=== PATIENT | male | born 2005 | race Two or more races ===

== ENCOUNTER 2024-02-29 15:02 | Inpatient (IN) | payer MEDICAID, OTHER ==
[~2024-02-29] VITALS: Ht 175.3 cm; Wt 64.0 kg
--- NOTE | 2024-02-29 18:07 | ED.PDOC ---
Musculoskeletal HPI Comments 18 year old male presents to the ED with chief complaint of left humerus fracture and surgery pre-op. Patient reports that he had fractured his left humerus on 01/21/24 after a rock climbing fall, having a cast placed by ortho for a month. Patient relays that the cast did not heal his fracture and he was referred to the ER by his orthopedist Dr. Orozco to be admitted to the hospital for surgery tomorrow. Patient states his pain is mild and does not need any pain medication at this time. Patient denies any other symptoms at this time. Chief Complaint: Upper Extremity Time Seen by MD: 18:04 Primary Care Provider: VALENCIA Rivas Notes: Nurses Notes, Medications, Allergies Allergies: Coded Allergies: NO KNOWN ALLERGIES (Unverified , 02/29/24) Information Source: Patient, Relative (Mother) Mode of Arrival: Ambulatory Location: Left Extremity Location: Arm Timing: Weeks Prehospital treatment: None Severity: Moderate Able to Move Extremity: No Bear Weight: Fully Pain: Mild Mechanism: Spontaneous Circumstances: Fall Onset of Symptoms: After Trauma Symptoms: Pain DVT Risk Factors: NONE Last Tetanus: UTD Associated signs and symptoms: Other (Left humerus fracture) Past Medical History PAST MEDICAL HISTORY: Denies Surgical History: Denies all surgeries Family History Family History: Reviewed,noncontributory to illness Social History Smoker: Non-Smoker Alcohol: Denies ETOH Use Drugs: Denies Drug Use Lives In: Home Constitutional: denies: chills, diaphoresis, fatigue, fever, malaise, sweats, weakness, others EENTM: denies: blurred vision, double vision, ear bleeding, ear discharge, ear drainage, ear pain, ear ringing, eye pain, eye redness, hearing loss, mouth pain, mouth swelling, nasal discharge, nose bleeding, nose congestion, nose pain, photophobia, tearing, throat pain, throat swelling, voice changes, others Respiratory: denies: cough, hemoptysis, orthopnea, SOB at rest, shortness of breath, SOB with excertion, stridor, wheezing, others Cardiovascular: denies: chest pain, dizzy spells, diaphoresis, Dyspnea on exertion, edema, irregular heart beat, left arm pain, lightheadedness, palpitations, PND, syncope, others Gastrointestinal: denies: abdomen distended, abdominal pain, blood streaked bowels, constipated, diarrhea, dysphagia, difficulty swallowing, hematemesis, melena, nausea, poor appetite, poor fluid intake, rectal bleeding, rectal pain, vomiting, others Genitourinary: denies: burning, dysuria, flank pain, frequency, hematuria, incontinence, penile discharge, penile sore, pain, testicle pain, testicle swelling, urgency, others Neurological: denies: dizziness, fainting, headache, left sided numbness, left sided weakness, numbness, paresthesia, pre-existing deficit, right sided numbness, right sided weakness, seizure, speech problems, tingling, tremors, weakness, others Musculoskeletal: reports: others (Left humerus fracture); denies: back pain, gout, joint pain, joint swelling, muscle pain, muscle stiffness, neck pain Integumetry: denies: bruises, change in color, change in hair/nails, dryness, laceration, lesions, lumps, rash, wounds, others Allergic/Immunocompromised: denies: Difficulty Healing, Frequent Infections, Hives, Itching, others Hematologic/Lymphatic: denies: anemia, blood clots, easy bleeding, easy bruising, swollen glands, others Endocrine: denies: excessive hunger, excessive sweating, excessive thirst, excessive urination, flushing, intolerance to cold, intolerance to heat, unexplained weight gain, unexplained weight loss, others Psychiatric: denies: anxiety, bipolar disorder, depression, hopeless, panic disorder, schizophrenia, sleepless, suicidal, others All Other Systems: Reviewed and Negative Physical Exam General Appearance: No Apparent Distress HEENT: PERRL/EOMI Neck: Full Range of Motion, Normal Inspection Respiratory: Lungs Clear, No Accessory Muscle Use, No Respiratory Distress, Normal Breath Sounds Cardiovascular: No Edema, No JVD, Regular Rate/Rhythm Breast Exam: Deferred Gastrointestinal: Non Tender, Soft Genitalia: Deferred Pelvic: Deferred Rectal: Deferred Extremities: Other (Left upper extremity sling in place with mid upper arm soft tissue tenderness. Left upper extremity neurovascularly intact.) Neurologic: Alert (Oriented x4), Normal Affect, Normal Mood, Other (Moves all extremities. No gross focal deficit.) Cerebellar Function: NOT DONE Reflexes: NOT DONE Skin: Dry, Normal Color, Warm Lymphatic: NOT DONE Was a procedure done? Was a procedure done?: No Differential Diagnosis EXT Differential Diagnosis: Fracture X-Ray, Labs, Meds, VS Vital Signs Date Time Temp Pulse Resp B/P (MAP) Pulse Ox O2 Delivery O2 Flow Rate FiO2 02/29/24 21:28 98.6 75 12 135/60 (85) 100 98.6 02/29/24 16:57 98.2 81 18 124/75 (91) 98 98.2 02/29/24 16:57 81 18 98 Room Air 02/29/24 15:26 98.0 89 16 129/67 (87) 97 Lab Test 02/29/24 17:54 Range/Units White Blood Count 7.1 4.4-10.8 10^3/uL Red Blood Count 5.22 4.5-5.90 10^6/uL Hemoglobin 15.8 13.5-17.5 g/dL Hematocrit 45.6 41.0-53.0 % Mean Corpuscular Volume 87.3 80.0-100.0 fL Mean Corpuscular Hemoglobin 30.2 28.0-32.0 pg Mean Corpuscular Hemoglobin Concent 34.6 32.0-36.0 g/dL Red Cell Distribution Width 13.1 11.8-14.3 % Platelet Count 252 140-450 10^3/uL Mean Platelet Volume 8.4 6.9-10.8 fL Neutrophils (%) (Auto) 67.4 37.0-80.0 % Lymphocytes (%) (Auto) 21.7 10.0-50.0 % Monocytes (%) (Auto) 8.0 0.0-12.0 % Eosinophils (%) (Auto) 1.6 0.0-7.0 % Basophils (%) (Auto) 1.3 0.0-2.0 % Neutrophils # (Auto) 4.8 1.6-8.6 10 ^3/uL Lymphocytes # (Auto) 1.5 0.4-5.4 10 ^3/uL Monocytes # (Auto) 0.6 0-1.3 10 ^3/uL Eosinophils # (Auto) 0.1 0-0.8 10 ^3/uL Basophils # (Auto) 0.1 0-0.2 10 ^3/uL Nucleated Red Blood Cells 0.2 % Prothrombin Time 11.6 9.3-11.8 sec Prothrombin Time INR 1.10 0.9-1.15 Activated Partial Thromboplast Time 27.8 24.5-34.5 SEC Sodium Level 139 136-145 mmol/L Potassium Level 4.2 3.5-5.1 mmol/L Chloride Level 103 98-107 mmol/L Carbon Dioxide Level 29 20-31 mmol/L Anion Gap 7 5-15 Blood Urea Nitrogen 13 9-23 mg/dL Creatinine 1.01 0.700-1.30 mg/dL Glomerular Filtration Rate Calc 110 >90 mL/min BUN/Creatinine Ratio 12.9 10.0-20.0 Serum Glucose 100 74-106 mg/dL Hemoglobin A1c 4.9 <5.7 % A1C Calcium Level 10.1 8.7-10.4 mg/dL Triglycerides Level 89 < 150 mg/dL Cholesterol Level 124 < 200 mg/dL LDL Cholesterol 75 < 100 mg/dL HDL Cholesterol 46 40-59 mg/dL Lt Humerus XR:Findings/Impression: 2 views of the left humerus. Markedly displaced transverse fracture of the mid humeral diaphysis. There is no evidence of dislocation, blastic, or lytic lesions. No radiopaque foreign bodies. No superficial soft tissue abnormalities. Chest XR: FINDINGS: Lines and Tubes: None Lungs: No focal consolidation. Pleura: No effusion. No pneumothorax. Cardiomediastinal contours: Unremarkable Bones: No acute osseous abnormality. IMPRESSION: 1. No acute cardiopulmonary disease. X-Ray, Labs, Meds, VS Comment 18-year-old male with no significant past medical history referred by Dr. Khanna for hospital admission for left upper extremity surgery tomorrow to repair a mid shaft humerus fracture with nonunion Vitals unremarkable Exam remarkable for left upper extremity mid humeral area soft tissue tenderness Rhythm strip independently interpreted by me: Sinus rhythm, rate 89, no ectopy. Chest x-ray unremarkable Left humerus x-ray Findings/Impression: 2 views of the left humerus. Markedly displaced transverse fracture of the mid humeral diaphysis. There is no evidence of dislocation, blastic, or lytic lesions. No radiopaque foreign bodies. No superficial soft tissue abnormalities. CBC, BMP and coagulation panel unremarkable for any abnormality of acute significance Patient resting comfortably with stable vitals on re-evaluation. He declined pain medication in the ED. He was placed NPO after midnight. Plan is to admit the patient for medical clearance for surgery in the morning. Images Reviewed?: Images reviewed and evaluated by me Time of 1ST Reevaluation: 19:04 Reevaluation 1ST: Unchanged Patient Education/Counseling: Diagnosis, Treatment Family Education/Counseling: Diagnosis, Treatment Departure 1 Departure Time of Disposition: 20:45 Impression: Primary Impression: Fracture of left humerus with nonunion Qualified Codes: S42.302K - Unspecified fracture of shaft of humerus, left arm, subsequent encounter for fracture with nonunion Disposition: 09 ADMITTED INPATIENT Admit to: Med Surg Condition: Stable Critical Care Note Critical Care Time?: No Stability Stability form required: No Heart Score Heart Score: Heart Score Response (Comments) Value History N/A 0 EKG N/A 0 Age N/A 0 Risk Factors N/A 0 Troponin N/A 0 Total 0 I personally scribed for NIK MART MD ([email or web address]) on 02/29/24 at 18:07. Electronically submitted by Kb Jordan ([email or web address]). I personally scribed for NIK MART MD ([email or web address]) on 02/29/24 at 18:23. Electronically submitted by Kb Jordan ([email or web address]). NIK MART MD Feb 29, 2024 18:07
--- NOTE | 2024-02-29 18:12 | DVH ---
EXAM: XY L HUMERUS XRAY CLINICAL HISTORY: fx COMPARISON: None TECHNIQUE: XY L HUMERUS XRAY Findings/Impression: 2 views of the left humerus. Markedly displaced transverse fracture of the mid humeral diaphysis. There is no evidence of dislocation, blastic, or lytic lesions. No radiopaque foreign bodies. No superficial soft tissue abnormalities.
--- NOTE | 2024-02-29 18:12 | DVH ---
CHEST RADIOGRAPH Indication: pre-op Technique: Single frontal view of the chest was obtained Comparison: None FINDINGS: Lines and Tubes: None Lungs: No focal consolidation. Pleura: No effusion. No pneumothorax. Cardiomediastinal contours: Unremarkable Bones: No acute osseous abnormality. IMPRESSION: 1. No acute cardiopulmonary disease. HS:Y
[2024-02-29 18:20] LABS: Basophils # (auto) 0.1 10 ^3/uL (0-0.2); Basophils % (auto) 1.3 % (0.0-2.0); Eosinophils # (auto) 0.1 10 ^3/uL (0-0.8); Eosinophils % (auto) 1.6 % (0.0-7.0); Hematocrit 45.6 % (41.0-53.0); Hemoglobin 15.8 g/dL (13.5-17.5); Lymphocytes # (auto) 1.5 10 ^3/uL (0.4-5.4); Lymphocytes % (auto) 21.7 % (10.0-50.0); Mean Corpuscular Hemoglobin 30.2 pg (28.0-32.0); Mean Corpuscular Hgb Conc. 34.6 g/dL (32.0-36.0); Mean Corpuscular Volume 87.3 fL (80.0-100.0); Monocytes # (auto) 0.6 10 ^3/uL (0-1.3); Neutrophils # (auto) 4.8 10 ^3/uL (1.6-8.6); Neutrophils % (auto) 67.4 % (37.0-80.0); Nucleated Red Blood Cells % 0.2 %; Platelet Count (auto) 252 10^3/uL (140-450); Red Blood Cells 5.22 10^6/uL (4.5-5.90); Red Cell Distribution Width 13.1 % (11.8-14.3); White Blood Cell 7.1 10^3/uL (4.4-10.8)
[2024-02-29 18:29] LABS: Chloride 103 mmol/L (98-107); Potassium 4.2 mmol/L (3.5-5.1); Sodium 139 mmol/L (136-145)
[2024-02-29 18:30] LABS: Anion Gap 7 (5-15); Calcium 10.1 mg/dL (8.7-10.4); Carbon Dioxide 29 mmol/L (20-31)
[2024-02-29 18:35] LABS: BUN/Creatinine Ratio 12.9 (10.0-20.0); Blood Urea Nitrogen 13 mg/dL (9-23); Glucose 100 mg/dL (74-106); INR 1.1 (0.9-1.15); Partial Thromboplastin Time 27.8 SEC (24.5-34.5); Prothrombin Time 11.6 sec (9.3-11.8)
[2024-02-29] MEDS ORDERED: HYDROcodone-ACET 5/325MG TAB PO PRN (22:30)
--- NOTE | 2024-02-29 22:39 | DVHHPRES ---
History of Present Illness Resident Creating Document: MIRELA CHATMAN History of Present Illness This is a 18-year-old male with no past medical history of relevance who presented to the ED with left humerus fracture. The patient states that the fracture occurred on January 21, 2024 when he felt while clamping 15 ft of height. Patient falling to the ground placing all his weight on the left upper extremity. A left upper extremity cast was placed on January 21, 2024 until February 21, 2024. Cast was removed at that time, patient is scheduled for left humerus surgical repair tomorrow on 03/01/24. The patient will be placed NPO, pain medication as needed. orthopaedic consult was placed as well. Patient will be admitted for surgery. Past Medical History None Past Surgical History: None Family History: None Smoke: No ALCOHOL: none Drugs: None Lives: with Family Domestic Violence: Neg Review of Systems Constitutional: No: Fever, Chills, Sweats, Weakness, Malaise, Other Eyes: No: Pain, Vision change, Conjunctivae inflammation, Eyelid inflammation, Other, Redness ENT: No: Ear pain, Ear discharge, Nose pain, Nose discharge, Nose congestion, Mouth pain, Mouth swelling, Throat pain, Throat swelling, Other Respiratory: No: Cough, Dry, Shortness of breath, SOB with excertion, Wheezing, Hemoptysis, Pleuritic Pain, Sputum, Wheezing, Other Cardiovascular: No: Chest Pain, Palpitations, Orthopnea, Paroxysmal Noc. Dyspnea, Edema, Lt Headedness, Other Gastrointestinal: No: Nausea, Vomiting, Abdominal Pain, Diarrhea, Constipation, Melena, Hematochezia, Other Genitourinary: No Dysuria, No Frequency, No Incontinence, No Hematuria, No Retention, No Other Musculoskeletal: arm pain (Mild left upper extremity pain on active motor mo vement); No: other, neck pain, shoulder pain, back pain, hand pain, leg pain, foot pain Skin: No: Rash, Lesions, Jaundice, Bruising, Other Neurological: No: Weakness, Numbness, Incoordination, Change in speech, C onfusion, Seizures, Other Allergies: Coded Allergies: NO KNOWN ALLERGIES (Unverified , 02/29/24) Exam Vital Signs Vital Signs Date Time Temp Pulse Resp B/P (MAP) Pulse Ox O2 Delivery O2 Flow Rate FiO2 02/29/24 21:28 98.6 75 12 135/60 (85) 100 98.6 02/29/24 16:57 Room Air General Appearance: Alert, Oriented X3, Cooperative, No acute distress HEENT: Atraumatic, PERRLA, EOMI, Mucous membr. moist/pink Respiratory: Clear to auscultation, Normal air movement Cardiovascular: Regular rate, Normal S1, Normal S2, No murmurs Abdominal: Normal bowel sounds, Soft, No tenderness, No hepatospenomegaly, No masses Extremities: No clubbing, No cyanosis, No edema, Normal pulses, No tenderness/swelling Skin: No rashes, No breakdown, No significant lesion Neuro: Normal gait, Normal speech, Strength at 5/5 X4 ext, Normal tone, Sensation intact, Cranial nerves 3-12 NL, Reflexes 2+ Psych/Mental Status: Mental status NL, Mood NL Labs/Xrays Labs Test 02/29/24 17:54 Range/Units White Blood Count 7.1 4.4-10.8 10^3/uL Red Blood Count 5.22 4.5-5.90 10^6/uL Hemoglobin 15.8 13.5-17.5 g/dL Hematocrit 45.6 41.0-53.0 % Mean Corpuscular Volume 87.3 80.0-100.0 fL Mean Corpuscular Hemoglobin 30.2 28.0-32.0 pg Mean Corpuscular Hemoglobin Concent 34.6 32.0-36.0 g/dL Red Cell Distribution Width 13.1 11.8-14.3 % Platelet Count 252 140-450 10^3/uL Mean Platelet Volume 8.4 6.9-10.8 fL Neutrophils (%) (Auto) 67.4 37.0-80.0 % Lymphocytes (%) (Auto) 21.7 10.0-50.0 % Monocytes (%) (Auto) 8.0 0.0-12.0 % Eosinophils (%) (Auto) 1.6 0.0-7.0 % Basophils (%) (Auto) 1.3 0.0-2.0 % Neutrophils # (Auto) 4.8 1.6-8.6 10 ^3/uL Lymphocytes # (Auto) 1.5 0.4-5.4 10 ^3/uL Monocytes # (Auto) 0.6 0-1.3 10 ^3/uL Eosinophils # (Auto) 0.1 0-0.8 10 ^3/uL Basophils # (Auto) 0.1 0-0.2 10 ^3/uL Nucleated Red Blood Cells 0.2 % Prothrombin Time 11.6 9.3-11.8 sec Prothrombin Time INR 1.10 0.9-1.15 Activated Partial Thromboplast Time 27.8 24.5-34.5 SEC Sodium Level 139 136-145 mmol/L Potassium Level 4.2 3.5-5.1 mmol/L Chloride Level 103 98-107 mmol/L Carbon Dioxide Level 29 20-31 mmol/L Anion Gap 7 5-15 Blood Urea Nitrogen 13 9-23 mg/dL Creatinine 1.01 0.700-1.30 mg/dL Glomerular Filtration Rate Calc 110 >90 mL/min BUN/Creatinine Ratio 12.9 10.0-20.0 Serum Glucose 100 74-106 mg/dL Calcium Level 10.1 8.7-10.4 mg/dL Assessment/Plan Assessment/Plan Assessment/Plan Complete closed Left humerus fracture -Left humerus x ray showed Markedly displaced transverse fracture of the mid humeral diaphysis. -Patient was previously on a cast for 6 weeks w/o healing -No pain at this time, Stebbins and acetaminophen PRN -Immobilization of left upper extremity -NPO after midnight -Consulted orthopaedic surgery -Ordered EKG Screen for hyperlipidemia -Ordered lipid panel Screen for DM -Ordered HbA1c Goals of care discussed with the patient and mother at bedside, FULL CODE Plan discussed with Dr. Betancourt Plan discussed with: Patient My Orders Orders - MIRELA CHATMAN RESIDENT Procedure Category Date Status Time Admit ADMIT 02/29/24 Verified 22:17 Code Status CODE 02/29/24 Verified 22:17 Vital Signs [facility] 02/29/24 Verified 22:17 Review Orders With [facility] 02/29/24 Verified Adm. 22:17 Npo (Nothing By DIET 03/01/24 Verified Mouth) Diet Breakfast Acetaminophen Tablet PHA 02/29/24 Verified (Tylenol Tablet) 22:30 Notify Of Changes [facility] 02/29/24 Verified From Base 22:17 Advance Directive [facility] 02/29/24 Verified 22:17 Urinalysis LAB 02/29/24 Verified 22:17 Lipid Panel LAB 02/29/24 Verified 22:17 Patient Condition ORDERS 02/29/24 Verified 22:17 Allergies [facility] 02/29/24 Verified 22:17 Hydrocodone-Acet PHA 02/29/24 Verified 5/325mg Tab (Stebbins 22:30 Drug Screen LAB 02/29/24 Verified 22:17 Ambulate Every 4hours [facility] 02/29/24 Verified 22:17 Date of Service: Feb 29, 2024 Billing Provider: JOHNIE BETANCOURT MD Common Visit Codes: [id number] INP/OBS CARE (HIGH) MIRELA CHATMAN RESIDENT Feb 29, 2024 22:39 JOHNIE BETANCOURT MD Mar 01, 2024 16:51
[2024-02-29 22:43] LABS: Triglycerides 89 mg/dL (< 150)
[2024-02-29 22:44] LABS: LDL Cholesterol 75 mg/dL (< 100)
[2024-02-29 22:45] LABS: HDL Cholesterol 46 mg/dL (40-59)
[2024-02-29 22:46] LABS: Cholesterol 124 mg/dL (< 200)
[2024-03-01 01:34] VITALS: BP 136/85; PULSE 75; RESP 16; TEMP 98.3; O2SAT 99
[2024-03-01 05:00] VITALS: BP 138/86; PULSE 90; RESP 20; TEMP 97.5; O2SAT 98
[2024-03-01 08:00] VITALS: PULSE 80; RESP 18; O2SAT 98
[2024-03-01] MEDS: SUCCINYLCHOLINE CHLORIDE 20 MG/ML 10ML VIAL IV ONE (08:09)
[2024-03-01] MEDS ORDERED: fentaNYL CITRATE 100 MCG/2 ML VL ONE (08:10)
[2024-03-01] MEDS ORDERED: PROPOFOL 10 MG/ML 20 ML IV ONE (08:10)
[2024-03-01 08:37] VITALS: BP 127/76; PULSE 70; RESP 16; TEMP 97.9; O2SAT 96
[2024-03-01] MEDS: ceFAZolin 2 GM/D5W100ml 100 ML IV ONE (08:53)
[2024-03-01 09:04] LABS: Urine Bacteria None Seen /hpf (None Seen)
--- NOTE | 2024-03-01 09:31 | DVHHP2 ---
History Allergies: Coded Allergies: NO KNOWN ALLERGIES (Unverified , 02/29/24) Chief Complaint: Left arm pain, deformity s/p fall rock climbing, 15ft, wearing helmet, hit head, no LOC, no AMS, acute arm pain and deformity Present Illness(Onset/Duration fall rock climbing on 01/21/24, presented to [facility] ER same day, XR showed transverse midshaft humerus fracture, evaluated by Dr Dimas, orthopaedics, placed in splint. XR at 5wks shows no evidence of healing, options expressed, continued conservative care vs ORIF non contributory Past Surgical History none Medications none Physical Exam Skin intact EENT NCAT Chest and Lungs CTA B Heart RRR neg MRG Abdomen NBS ND NT Extremities Left arm, NVI, skin intact, gross motion at mid upper arm, pain with ROM Vital Signs Vital Signs Date Time Temp Pulse Resp B/P (MAP) Pulse Ox O2 Delivery O2 Flow Rate FiO2 03/01/24 08:37 97.9 70 16 127/76 (93) 96 97.9 03/01/24 08:00 Room Air* 0 21 Impressions/Description LEFT humerus , midshaft fracture, transverse, with no evidence of healing Plan Options expressed continued conservatice care vs ORIF given transverse pattern of fracture no evidence of healing at 5 wks I expressed a possibilty of racture not healing options above were expressed and patient opted for surgery with full understanding of risks and benefits ADRIANNA JOHN MD Mar 01, 2024 09:31
[2024-03-01] MEDS: ROPIVACAINE 0.5% (5MG/ML) 20ML AMPULE IJ ONE (09:34)
[2024-03-01 09:45] LABS: Urine Blood Negative /uL (Negative); Urine Clarity Clear (Clear); Urine Color Yellow (Yellow); Urine Mucus FEW (None Seen); Urine Protein, UAD Negative (Negative); Urine Specific Gravity 1.028 (1.001-1.035); Urine Squamous Epithelial Cell FEW /hpf (<5); Urine Urobilinogen Normal (Negative); Urine WBC <1 /hpf (0 - 3); Urine pH 6.5 (5.0-9.0)
[2024-03-01] MEDS ORDERED: ePHEDrine SULFATE 50 MG/ML AMP ONE (09:54)
[2024-03-01] MEDS ORDERED: ONDANSETRON HCL 4 MG/2 ML VIAL ONE (09:54)
[2024-03-01] MEDS ORDERED: DexAMETHasone SOD PHOS 10MG/1ML VIAL INJ ONE (09:54)
[2024-03-01] MEDS ORDERED: MEPERIDINE HCL (25 MG/ML) 1ML VIAL ONE ×2 (09:56→10:29)
[2024-03-01] MEDS: LIDOCAINE W/ EPINEPHRINE 1% 20ML VIAL ONE (10:09)
[2024-03-01 10:16] LABS: Amphetamine Screen, Urine Neg (NEGATIVE); Barbiturate Scree,Urine Neg (NEGATIVE); Benzodiazephine Screen, Urine Neg (NEGATIVE); Cannabinoid Screen, Urine Neg (NEGATIVE); Cocaine Screen, Urine Neg (NEGATIVE); Opiate Scree,Urine Neg (NEGATIVE); Phencyclidine Screen, Urine Neg (NEGATIVE)
[2024-03-01 10:40] VITALS: PULSE 127; RESP 16; O2SAT 98
[2024-03-01] MEDS: HYDROmorphone HCL 2 MG/ML VL/or syr ONE (10:58)
--- NOTE | 2024-03-01 10:59 | DVHOP2 ---
Operative Report - 2 Report Details Date: 03/01/24 Preop Diagnosis: LEFT humeral shaft fracture, midshaft, transverse, displaced Postop Diagnosis: same Surgeon: Yung John MD Dietary Clerk: none Anesthesiologist: Dr Martin Anesthesia: General Drains: none Implant: 6 hole recon plate, 6 cortical screws Consent: The patient was informed of the risks and benefits of the procedure. These include but are not limited to complications of anesthesia, postoperative infection, incomplete relief of symptoms, recurrence of symptoms, damage to blood vessels, nerves and tendons, deep venous thrombosis, pulmonary embolism and possible need for repeat surgery in the future. Complications: none Estimated Blood Loss: 50 cc Fluids: 500 cc crystalloid Findings: Left humerus midshaaft fracture, transverse, bayonette displacement, no callus formation Indications for Surgery: Transvers midshaft humerus fracture, displaced with no evidence of healing at 5 weeks Name of Procedure Performed Open reduction internal fixation of LEFT midshaft humerus fracture Procedure Details Procedure Details: Patient brought to the operating room received Ancef 1 g IV piggyback preoperatively sterile prep and drape left upper extremity and upper extremity placed on arm table time-out performed comprehension left side correct site open reduction internal fixation of left midshaft humerus fracture correct procedure after review of operative consent history and physical my initials on left arm no tourniquet used during the case longitudinal incision made anterior aspect of upper arm sharp dissection through skin down to subcutaneous tissue blunt disse ction down to deep fascia retraction of Monika biceps muscle medially exposing brachialis muscle muscular cutaneous nerve was observed and care taken to not retract against muscular cutaneous nerve lateral antebrachial cutaneous nerve were observed care taken to not retract against this nerve needle point Bovie cautery to four longitudinal division of brachialis mid mid muscle and s ubperiosteal elevation performed on each side of the brachialis muscle exposing humeral shaft humerus shaft seem to be band at displaced proximal fragment posterior with overlap of 2-3 cm fracture site exposed and curettage of ends of the of the each end of the fracture reduction of the fracture manually placement of a six hole recon plate anteriorly fixation with a recon plate with three bicortical screws proximally three bicortical screws distally C-arm fluoro taken to confirm good position of plate and anatomic alignment of fracture irrigation then performed excellent hemostasis noted [id number] closure of brachialis muscle with 2-0 Vicryl subcutaneous closure with 2-0 Vicryl skin jerri fluffs ABD injection of subcutaneous layer 10 cc Marcaine no epi and deep layer meaning just anterior to fracture site also with 10 cc Marcaine no epi no drains specimens complications Specimen: none Condition Stable Disposition Still a Patient YUNG JOHN MD Mar 01, 2024 10:59
[2024-03-01] MEDS ORDERED: ceFAZolin 1GM/50ML 50 ML IV SCH ×2 (11:00→17:00)
[2024-03-01] MEDS: ONDANSETRON HCL 4 MG/2 ML VIAL IV ONE (11:00)
[2024-03-01] MEDS: MEPERIDINE HCL (25 MG/ML) 1ML VIAL IV PRN (11:00)
[2024-03-01] MEDS ORDERED: ACETAMINOPHEN IV 1000 MG/100ML (10MG/ML) IV PRN (11:00)
[2024-03-01] MEDS: HYDROmorphone HCL 2 MG/ML VL/or syr IV PRN (11:00)
--- NOTE | 2024-03-01 11:24 | DVH ---
FLUOROSCOPY TIME: 0.8 seconds TECHNIQUE: Intraoperative radiographs of the left humerus were obtained. COMPARISON: None FINDINGS: Refer to intraoperative report for further evaluation. IMPRESSION: Refer to intraoperative report for further evaluation.
--- NOTE | 2024-03-01 11:34 | DVH ---
FLUOROSCOPY TIME: 0.8 seconds TECHNIQUE: Intraoperative radiographs of the left humerus were obtained. COMPARISON: None FINDINGS: Refer to intraoperative report for further evaluation. IMPRESSION: Refer to intraoperative report for further evaluation.
[2024-03-01] MEDS: D5W/LACTATED RINGERS 1,000 ML IV SCH (12:06)
[2024-03-01 13:00] VITALS: BP 129/59; PULSE 100; RESP 19; TEMP 97.5; O2SAT 92
[2024-03-01] MEDS: ACETAMINOPHEN 325 MG TAB PO PRN (16:30)
--- NOTE | 2024-03-01 17:41 | DVHDS2 ---
Discharge Summary Date of Admission Feb 29, 2024 at 22:17 Date of Discharge: Mar 01, 2024 Labs/Diagnostic Data: Laboratory Results Test 03/01/24 08:00 02/29/24 17:54 Urine Color Yellow (Yellow) Urine Clarity Clear (Clear) Urine pH 6.5 (5.0-9.0) Urine Specific [place] 1.028 (1.001-1.035) Urine Protein Negative (Negative) Urine Ketones Negative (Negative) Urine Blood Negative /uL (Negative) Urine Nitrite Negative (Negative) Urine Bilirubin Negative (Negative) Urine Urobilinogen Normal mg/dL (Negative) Urine Leukocyte Esterase Negative /uL (Negative) Urine RBC 1 /hpf (0 - 3) Urine WBC <1 /hpf (0 - 3) Urine Squamous Epithelial Cells Few /hpf (<5) Urine Bacteria None seen /hpf (None Seen) Urine Mucus Few (None Seen) Urine Glucose Normal mg/dL (Normal) Urine Opiates Screen Neg (NEGATIVE) Urine Fentanyl Screen Neg (NEGATIVE) Urine Barbiturates Screen Neg (NEGATIVE) Urine Phencyclidine Screen Neg (NEGATIVE) Urine Amphetamines Screen Neg (NEGATIVE) Urine Benzodiazepines Screen Neg (NEGATIVE) Urine Cocaine Screen Neg (NEGATIVE) Urine Cannabinoids Screen Neg (NEGATIVE) White Blood Count 7.1 10^3/uL (4.4-10.8) Red Blood Count 5.22 10^6/uL (4.5-5.90) Hemoglobin 15.8 g/dL (13.5-17.5) Hematocrit 45.6 % (41.0-53.0) Mean Corpuscular Volume 87.3 fL (80.0-100.0) Mean Corpuscular Hemoglobin 30.2 pg (28.0-32.0) Mean Corpuscular Hemoglobin Concent 34.6 g/dL (32.0-36.0) Red Cell Distribution Width 13.1 % (11.8-14.3) Platelet Count 252 10^3/uL (140-450) Mean Platelet Volume 8.4 fL (6.9-10.8) Neutrophils (%) (Auto) 67.4 % (37.0-80.0) Lymphocytes (%) (Auto) 21.7 % (10.0-50.0) Monocytes (%) (Auto) 8.0 % (0.0-12.0) Eosinophils (%) (Auto) 1.6 % (0.0-7.0) Basophils (%) (Auto) 1.3 % (0.0-2.0) Neutrophils # (Auto) 4.8 10 ^3/uL (1.6-8.6) Lymphocytes # (Auto) 1.5 10 ^3/uL (0.4-5.4) Monocytes # (Auto) 0.6 10 ^3/uL (0-1.3) Eosinophils # (Auto) 0.1 10 ^3/uL (0-0.8) Basophils # (Auto) 0.1 10 ^3/uL (0-0.2) Nucleated Red Blood Cells 0.2 % Prothrombin Time 11.6 sec (9.3-11.8) Prothrombin Time INR 1.10 (0.9-1.15) Activated Partial Thromboplast Time 27.8 SEC (24.5-34.5) Sodium Level 139 mmol/L (136-145) Potassium Level 4.2 mmol/L (3.5-5.1) Chloride Level 103 mmol/L (98-107) Carbon Dioxide Level 29 mmol/L (20-31) Anion Gap 7 (5-15) Blood Urea Nitrogen 13 mg/dL (9-23) Creatinine 1.01 mg/dL (0.700-1.30) Glomerular Filtration Rate Calc 110 mL/min (>90) BUN/Creatinine Ratio 12.9 (10.0-20.0) Serum Glucose 100 mg/dL (74-106) Hemoglobin A1c 4.9 % A1C (<5.7) Calcium Level 10.1 mg/dL (8.7-10.4) Triglycerides Level 89 mg/dL (< 150) Cholesterol Level 124 mg/dL (< 200) LDL Cholesterol 75 mg/dL (< 100) HDL Cholesterol 46 mg/dL (40-59) Other Laboratory Tests 02/29/24 17:54 Brief Hx & Hospital Course: 18 yo admitted from ER for nonhealing left humerus fracture. pt underwent ORIF. Patient did well post operatively. Ortho recommended [place] [facility]. Operations or Procedures LEFT HUMERUS ORIF Condition at Discharge: Stable Final Diagnosis/Problems List ORIF LEFT SHOULDER Discharge Disposition: Home Discharge Instruct/Medications Diet: Regular Activity: Light activity Follow Up/Referral: FOLLOW UP WITH DR. JOHN WITHIN 1-2 WEEKS Medications: NO NEW MEDICATIONS. PATIENT CAN TAKE IBUPROFEN AND TYLENOL OVER THE COUNTER FOR PAIN MANAGEMENT. Discharge Statement: "Patient was advised to return to the ER or call 911 if any headaches, dizziness, shortness of breath, chest pain, abdominal pain, bleeding, fevers, or worsening of medical condition. Patient was counseled about treatment plan, medications, possible side effects, patientverbalized understanding. All questions were answered to the best of my ability. This discharge took greater then 30 minutes in planning, reviewing documentation, counseling the patient, and discussing with other team members." ASSESSMENT ASSESSMENT Assessment ORIF LEFT SHOULDER Date of Service: Mar 01, 2024 Billing Provider: ANOOP ENGEL MD Common Visit Codes: 53004-BKE/OBS DISCH DAY <30MIN ANOOP ENGEL MD Mar 01, 2024 17:41
== END 2024-03-01 17:00 | disposition home or self-care (01) | DRG 315 ==
LOC: ER 15:02 → OVERFLOW 22:17 → WEST WING 03-01 01:29
PROVIDERS: ADMIT Internal Medicine; ATTEND Internal Medicine
PROC: 0PSG04Z Reposition Left Humeral Shaft with Internal Fixation Device, Open Approach (ICD-10-PCS; principal; 2024-03-01 09:24)
DX: S42.322A Displaced transverse fracture of shaft of humerus, left arm, initial encounter for closed fracture (principal); E78.5 Hyperlipidemia, unspecified; X58.XXXA Exposure to other specified factors, initial encounter; Y93.9 Activity, unspecified; Y92.89 Other specified places as the place of occurrence of the external cause; Y99.8 Other external cause status
CPT/HCPCS: 36415; 71045; 73060; 76000; 80048; 80061; 80307; 81001; 83036; 85025; 85610; 85730; G0378; J0131; J0330; J1100; J2405; J2704